=== PATIENT | male | born 1975 | race American Indian/Alaskan Native ===

== ENCOUNTER 2019-02-14 18:12 | Emergency (ER) | payer SELFPAY ==
--- NOTE | 2019-02-14 18:31 | Event Note ---
ED Screening Note ED Screening Note: pt presents with N/V that began today states he had one episode of bright red blood in emesis +diarrhea no hematochezia +nausea abd cramping no urinary sx PMHx none no allergies +smoker +daily drinker +marijuana denies any other drug use This initial assessment/diagnostic orders/clinical plan/treatment(s) is/are subject to change based on patients health status, clinical progression and re- assessment by fellow clinical providers in the ED. Further treatment and workup at subsequent clinical providers discretion. Patient/guardian urged not to elope from the ED as their condition may be serious if not clinically assessed and managed. Initial orders include: labs
[2019-02-14 19:20] LABS: Basophils # (Auto) 0.1 K/mm3 (0.0-0.1); Basophils % (Auto) 0.7 % (0.0-1.8); Eosinophils % (Auto) 0.1 % (0.0-4.3); Hematocrit 45.8 % (35.5-45.6); Hemoglobin 15.3 gm/dl (11.8-15.2); Lymphocytes # (Auto) 1.7 K/mm3 (1.2-5.4); Lymphocytes % (Auto) 15.9 % (13.4-35.0); Mean Corpuscular HGB Conc 33 % (32-34); Mean Corpuscular Volume 95 fl (84-94); Monocytes # (Auto) 0.8 K/mm3 (0.0-0.8); Monocytes % (Auto) 7.9 % (0.0-7.3); Platelet Count 275 K/mm3 (140-440); Red Blood Count 4.85 M/mm3 (3.65-5.03); Red Cell Distribution Width 12.9 % (13.2-15.2)
[2019-02-14 19:32] LABS: INR 1.07 (0.87-1.13); Partial Thromboplastin Time 26.4 Sec. (24.2-36.6)
[2019-02-14 19:44] LABS: BUN/Creatinine Ratio 10; Blood Urea Nitrogen 10 mg/dL (9-20)
[2019-02-14 19:45] LABS: Alanine Aminotransferase 65 units/L (7-56); Albumin 4.8 g/dL (3.9-5); Hemolysis Index 7
--- NOTE | 2019-02-14 20:39 | Emergency Department Report ---
ED GI Bleed HPI - General Chief complaint: GI Bleed Stated complaint: VOMITING BLOOD Time Seen by Provider: 02/14/19 18:29 Source: patient Mode of arrival: Ambulatory Limitations: No Limitations - History of Present Illness Initial comments: Patient is a 43 year-old mellitus emergency room with complaints of blood streaked emesis along with nausea vomiting. Patient denies abdominal pain at this time but states he had a small amount of epigastric pain earlier today.. Patient states he drinks alcohol daily. Patient states he smokes. Patient states the streaks were only in his vomitus one time. Patient states the second time he vomited there was no streaks. Patient denies fever and chills. Patient denies dark stool. Patient states he had some diarrhea today but no blood in it or no dark stool. MD complaint: blood streaked emesis -: Sudden Location: epigastric Radiation: none Severity scale (0 -10): 3 Quality: cramping Consistency: now resolved Improves with: rest Worsens with: eating, movement Context: alcohol abuse Associated Symptoms: abdominal pain, nausea, vomiting. denies: epistaxis, fever/chills, headaches, loss of appetite, malaise, easy bruising, rash, other bleeding, shortness of breath, syncope, weakness Treatments Prior to Arrival: none - Related Data Previous Rx's Medication Instructions Recorded Last Taken Type Amlodipine Besylate [Norvasc] 2.5 mg PO DAILY #10 tablet 02/14/19 Unknown Rx Esomeprazole Magnesium [NexIUM] 40 mg PO QDAY #30 capsule. 02/14/19 Unknown Rx Allergies Allergy/AdvReac Type Severity Reaction Status Date / Time seafood Allergy Swelling Uncoded 02/14/19 18:14 ED Review of Systems ROS: Stated complaint: VOMITING BLOOD Other details as noted in HPI Constitutional: denies: chills, fever Eyes: denies: eye pain, eye discharge, vision change ENT: denies: ear pain, throat pain Respiratory: denies: cough, shortness of breath, wheezing Cardiovascular: denies: chest pain, palpitations Endocrine: no symptoms reported Gastrointestinal: abdominal pain, nausea, vomiting, diarrhea. denies: constipation, melena, hematochezia Genitourinary: denies: urgency, dysuria Musculoskeletal: denies: back pain, joint swelling, arthralgia Skin: denies: rash, lesions Neurological: denies: headache, weakness, paresthesias Psychiatric: denies: anxiety, depression Hematological/Lymphatic: denies: easy bleeding, easy bruising ED Past Medical Hx - Past Medical History Previous Medical History?: No - Surgical History Past Surgical History?: No - Family History Family history: no significant - Social History Smoking Status: Current Every Day Smoker Substance Use Type: Alcohol, Marijuana - Medications Home Medications: Home Medications Medication Instructions Recorded Confirmed Last Taken Type Amlodipine Besylate [Norvasc] 2.5 mg PO DAILY #10 tablet 02/14/19 Unknown Rx Esomeprazole Magnesium [NexIUM] 40 mg PO QDAY #30 capsule. 02/14/19 Unknown Rx ED Physical Exam - General Limitations: No Limitations General appearance: alert, in no apparent distress - Head Head exam: Present: atraumatic, normocephalic - Eye Eye exam: Present: normal appearance - ENT ENT exam: Present: mucous membranes moist - Neck Neck exam: Present: normal inspection - Respiratory Respiratory exam: Present: normal lung sounds bilaterally. Absent: respiratory distress - Cardiovascular Cardiovascular Exam: Present: regular rate, normal rhythm. Absent: systolic murmur, diastolic murmur, rubs, gallop - GI/Abdominal GI/Abdominal exam: Present: soft, normal bowel sounds. Absent: distended, tenderness, guarding - Rectal Rectal exam: Present: deferred - Extremities Exam Extremities exam: Present: normal inspection - Back Exam Back exam: Present: normal inspection - Neurological Exam Neurological exam: Present: alert, oriented X3 - Psychiatric Psychiatric exam: Present: normal affect, normal mood - Skin Skin exam: Present: warm, dry, intact, normal color. Absent: rash ED Course Vital Signs 02/14/19 02/14/19 02/14/19 18:29 20:40 20:41 Temperature 98.7 F 98.3 F Pulse Rate 80 70 Respiratory 20 13 13 Rate Blood Pressure 150/94 172/100 [Right] O2 Sat by Pulse 98 100 100 Oximetry - Reevaluation(s) Reevaluation #1: Discussed all results with patient. Patient is stable for discharge. Patient will be discharged home. Patient agrees to plan of care. Patient given discharge instructions. Patient voiced understanding of discharge instructions. 02/14/19 21:27 - Consultations Consultation #1: GI paged 02/14/19 20:50 Discussed case with GI, Dr. Sandy. Dr. Sandy states he be discharged home and follow-up as an outpatient 02/14/19 21:25 ED Medical Decision Making - Lab Data Result diagrams: 02/14/19 18:51 02/14/19 18:51 - Medical Decision Making Patient is a 43-year-old male that since emergency room with complaints of blood streaking in his vomitus times one. Patient's clinical findings are consistent with alcoholic gastritis. Patient is a daily drinker. Patient encouraged to decrease alcohol intake. Patient to start Nexium. Patient to avoid NSAIDs. Patient to follow up with GI SHE[facility]. Patient to follow up with his primary care as well. Patient found to be hypertensive in ER. Patient was given 2.5 mg of Norvasc daily. Patient encouraged to monitor his blood pressure. Patient's labs unremarkable. - Differential Diagnosis gastritis. Critical care attestation.: If time is entered above; I have spent that time in minutes in the direct care of this critically ill patient, excluding procedure time. ED Disposition Clinical Impression: Gastritis Qualifiers: Gastritis type: alcoholic Chronicity: acute Gastritis bleeding: with bleeding Qualified Code(s): K29.21 - Alcoholic gastritis with bleeding Bloody vomitus Qualifiers: Nausea presence: with nausea Qualified Code(s): K92.0 - Hematemesis Nausea & vomiting Qualifiers: Vomiting type: unspecified Vomiting Intractability: non-intractable Qualified Code(s): R11.2 - Nausea with vomiting, unspecified Abdominal pain Qualifiers: Abdominal location: epigastric Qualified Code(s): R10.13 - Epigastric pain Hypertension Qualifiers: Hypertension type: essential hypertension Qualified Code(s): I10 - Essential (primary) hypertension Disposition: -01 TO HOME OR SELFCARE Is pt being admited?: No Does the pt Need Aspirin: No Condition: Stable Instructions: Gastritis (ED), Diet for Ulcers and Gastritis (ED), Acute Nausea and Vomiting (ED), Abuse of Alcohol (ED), Hypertension (ED), DASH Eating Plan (ED), Low Sodium Diet (ED), Heart Healthy Diet (ED), How to Take a Blood Pressure (ED), Amlodipine (By mouth) Additional Instructions: Patient to follow-up with primary care in 2-3 days. Patient to follow up with GI in 2-3 days. Patient to avoid NSAIDs. Patient to decrease alcohol slowly. Patient to return to ER if condition worsens. Patient to take meds as directed. Patient to increase water. Patient to rest. Prescriptions: Esomeprazole Magnesium [NexIUM] 40 mg PO QDAY #30 capsule. Amlodipine Besylate [Norvasc] 2.5 mg PO DAILY #10 tablet Referrals: DANIELLE KEENANPELHAM MD STEFFANY [Primary Care Provider] - 2-3 Days FRANSISCA SANDY MD [Staff Physician] - 2-3 Days Forms: Accompanied Note Time of Disposition: 21:32
[2019-02-14 21:54] VITALS: BP 166/101
== END 2019-02-14 21:55 | disposition home or self-care (01) ==
LOC: ED 18:12
DX: K29.21 Alcoholic gastritis with bleeding (principal); K92.0 Hematemesis; I10 Essential (primary) hypertension; F12.10 Cannabis abuse, uncomplicated; F17.200 Nicotine dependence, unspecified, uncomplicated; Z91.013 Allergy to seafood
CPT/HCPCS: 36415; 80053; 83690; 85025; 85610; 85730; 99283

== ENCOUNTER 2021-10-24 17:42 | Emergency (ER) | payer SELFPAY ==
[2021-10-24] MEDS ORDERED: IBUPROFEN 600 MG TAB PO ONE (20:29)
[2021-10-24] MEDS ORDERED: predniSONE 20 MG TAB PO ONE (20:29)
[2021-10-24] MEDS ORDERED: diazePAM 5 MG TAB PO ONE (20:29)
--- NOTE | 2021-10-24 20:49 | Emergency Department Report ---
ED Back Pain/Injury HPI - General Chief Complaint: Back Pain/Injury Stated Complaint: LOWER BACK PAIN X3WKS Source: patient Limitations: No Limitations - History of Present Illness Initial Comments: Patient is a 45-year-old -[place] male with no past medical history presents to the ED with complaint of acute onset persistent low back pain for the last 2 weeks, worse in the last 3 days. Patient states that his job entails heavy lifting and suspect that he may have injured his lower back while lifting at work. Patient denies dysuria, urinary frequency and urgency, hematuria, numbness and tingling or weakness of lower extremities bilaterally, chest pain or shortness of breath, abdominal pain, testicular pain, numbness and tingling or weakness of upper and lower extremities bilaterally, fall or traumatic injury. MD Complaint: back pain (Low back pain) -: Sudden, week(s) (2) Similar Symptoms Previously: No Place: home Radiation: none Severity: severe Severity scale (0 -10): 8 Quality: sharp, aching Consistency: constant Improves With: none Worsens With: movement, walking Context: while lifting, turning/twisting Associated Symptoms: denies other symptoms. denies: confusion, weakness, chest pain, difficulty walking, cough, difficulty urinating, diaphoresis, incontinence, constipation, headaches, abdominal pain, loss of appetite, malaise, nausea/vomiting, rash, seizure, shortness of breath, syncope - Related Data Previous Rx's Medication Instructions Recorded Last Taken Type Amlodipine Besylate [Norvasc] 2.5 mg PO DAILY #10 tablet 02/14/19 Unknown Rx Esomeprazole Magnesium [NexIUM] 40 mg PO QDAY #30 capsule. 02/14/19 Unknown Rx Baclofen 20 mg PO Q12H PRN #30 tab 10/24/21 Unknown Rx Naproxen 500 mg PO Q12H PRN #30 tab 10/24/21 Unknown Rx predniSONE [Deltasone] 60 mg PO QDAY #15 tab 10/24/21 Unknown Rx Allergies Allergy/AdvReac Type Severity Reaction Status Date / Time seafood Allergy Swelling Uncoded 02/14/19 18:14 ED Review of Systems ROS: Stated complaint: LOWER BACK PAIN X3WKS Other details as noted in HPI Constitutional: denies: chills, fever Eyes: denies: eye pain, eye discharge, vision change ENT: denies: ear pain, throat pain Respiratory: denies: cough, shortness of breath, wheezing Cardiovascular: denies: chest pain, palpitations Endocrine: no symptoms reported Gastrointestinal: denies: abdominal pain, nausea, diarrhea Genitourinary: denies: urgency, dysuria Musculoskeletal: back pain (Low back pain), arthralgia, myalgia. denies: joint swelling Skin: denies: rash, lesions Neurological: denies: headache, weakness, paresthesias Psychiatric: denies: anxiety, depression Hematological/Lymphatic: denies: easy bleeding, easy bruising ED Past Medical Hx - Social History Smoking Status: Current Every Day Smoker Substance Use Type: Alcohol, Marijuana - Medications Home Medications: Home Medications Medication Instructions Recorded Confirmed Last Taken Type Amlodipine Besylate [Norvasc] 2.5 mg PO DAILY #10 tablet 02/14/19 Unknown Rx Esomeprazole Magnesium [NexIUM] 40 mg PO QDAY #30 capsule. 02/14/19 Unknown Rx Baclofen 20 mg PO Q12H PRN #30 tab 10/24/21 Unknown Rx Naproxen 500 mg PO Q12H PRN #30 tab 10/24/21 Unknown Rx predniSONE [Deltasone] 60 mg PO QDAY #15 tab 10/24/21 Unknown Rx ED Physical Exam - General Limitations: No Limitations General appearance: alert, in no apparent distress - Head Head exam: Present: atraumatic, normocephalic, normal inspection - Eye Eye exam: Present: normal appearance, PERRL, EOMI Pupils: Present: normal accommodation - ENT ENT exam: Present: normal exam, normal orophraynx, mucous membranes moist, TM's normal bilaterally, normal external ear exam - Neck Neck exam: Present: normal inspection, full ROM. Absent: tenderness - Respiratory Respiratory exam: Present: normal lung sounds bilaterally. Absent: respiratory distress, wheezes, rales, chest wall tenderness, accessory muscle use, decreased breath sounds, prolonged expiratory - Cardiovascular Cardiovascular Exam: Present: regular rate, normal rhythm, normal heart sounds. Absent: systolic murmur, diastolic murmur, rubs, gallop - GI/Abdominal GI/Abdominal exam: Present: soft, normal bowel sounds. Absent: distended, tenderness, guarding, rebound, hyperactive bowel sounds, hypoactive bowel sounds, mass, bruit - Extremities Exam Extremities exam: Present: normal inspection, full ROM, normal capillary refill. Absent: tenderness - Back Exam Back exam: Present: normal inspection, full ROM, tenderness (Palpable lumbosacral paraspinal musculoskeletal tenderness), muscle spasm, paraspinal tenderness. Absent: CVA tenderness (L), vertebral tenderness, rash noted - Neurological Exam Neurological exam: Present: alert, oriented X3, CN II-XII intact, normal gait, reflexes normal - Psychiatric Psychiatric exam: Present: normal affect, normal mood - Skin Skin exam: Present: warm, dry, intact, normal color. Absent: rash ED Course Vital Signs 10/24/21 10/24/21 19:24 20:38 Temperature 98.9 F Pulse Rate 80 Respiratory 18 14 Rate Blood Pressure 173/99 O2 Sat by Pulse 97 Oximetry ED Medical Decision Making - Medical Decision Making This is a 45-year-old -[place] male with no past medical history presents to the ED with complaint of acute onset persistent low back pain for the last 2 weeks, worse in the last 3 days. Patient states that his job entails heavy lifting and suspect that he may have injured his lower back while lifting at work. In the ED, patient is alert and oriented x3 and is not in any distress. Patient however appears to be in pain. Patient was treated for pain in the ED. On reevaluation, patient's pain is well controlled medication. Patient was discharged home on pain medications and muscle relaxants and advised to follow-up with his primary care physician in 7 to 10 days for reevaluation or return to the ED immediately if symptoms get worse. - Differential Diagnosis Muscle spasm of back; muscle strain of back Critical care attestation.: If time is entered above; I have spent that time in minutes in the direct care of this critically ill patient, excluding procedure time. ED Disposition Clinical Impression: Spasm of muscle of lower back, Strain of muscle, fascia and tendon of lower back, initial encounter Acute low back pain without sciatica Qualifiers: Back pain laterality: bilateral Qualified Code(s): M54.50 - Low back pain, unspecified Disposition: HOME / SELF CARE / HOMELESS Is pt being admited?: No Does the pt Need Aspirin: No Condition: Stable Instructions: Muscle Cramps and Spasms, [id number], Muscle Strain, [id number], Low Back Sprain or Strain Rehab-SportsMed Additional Instructions: Your symptoms are likely muscle spasm or muscle strain of low back. Therefore take medication with food, drink plenty of fluids and follow-up with your primary care physician in 7 to 10 days for reevaluation. Return to the ED immediately if symptoms get worse. Prescriptions: Baclofen 20 mg PO Q12H PRN #30 tab PRN Reason: Muscle Spasm predniSONE [Deltasone] 60 mg PO QDAY #15 tab Naproxen 500 mg PO Q12H PRN #30 tab PRN Reason: Pain , Severe (7-10) Referrals: [facility] [Provider Group] - 7-10 days Forms: Work/School Release Form(ED) Time of Disposition: 20:49 Print Language: LUXEMBOURGER
[2021-10-24 22:15] VITALS: BP 154/100
== END 2021-10-24 22:17 | disposition home or self-care (01) ==
LOC: ED 17:42
DX: S39.012A Strain of muscle, fascia and tendon of lower back, initial encounter (principal); M62.830 Muscle spasm of back; F17.200 Nicotine dependence, unspecified, uncomplicated; F12.90 Cannabis use, unspecified, uncomplicated; Z72.89 Other problems related to lifestyle; Z91.013 Allergy to seafood; Z79.899 Other long term (current) drug therapy; X50.0XXA Overexertion from strenuous movement or load, initial encounter; Y93.89 Activity, other specified; Y92.89 Other specified places as the place of occurrence of the external cause; Y99.8 Other external cause status
CPT/HCPCS: 99282